=== PATIENT | female | born 1940 | race Hispanic/Latino ===

== ENCOUNTER 2018-07-20 10:13 | Observation (INO) | payer OTHER, MEDICARE ==
[~2018-07-20] VITALS: Ht 157.5 cm; Wt 77.1 kg
[~2018-07-20 10:13] MED LIST: AEC81 PO; ALBU0.63 IH; ATOR10 PO; LEVO150T11 PO; METF-446 PO; NAPR-1023 PO; OLAN1CAP PO
[2018-07-20] MEDS ORDERED: SODIUM CHLORIDE 0.9% 500ML 500 ML IV ONE (10:54)
[2018-07-20] MEDS ORDERED: KETOROLAC TROMETHAMINE 30MG/ML ONE (10:54)
[2018-07-20 11:37] LABS: BASOPHILS % (AUTO) 0.2 % (0.0-5.0); EOSINOPHILS % (AUTO) 0.1 % (0.0-8.0); HEMATOCRIT 31.6 % (36-48); LYMPHOCYTES % (AUTO) 9.5 % (21.0-51.0); MEAN CORPUSCULAR HEMOGLOBIN 26.8 pg (27.0-33.0); MEAN CORPUSCULAR HGB CONC 32.6 g/dL (32.0-36.0); MEAN CORPUSCULAR VOLUME 82.3 fL (79-99); NEUTROPHILS % (AUTO) 83.2 % (40.0-77.0); PLATELET COUNT (AUTO) 146 K/uL (130-400); RED BLOOD CELL COUNT(AUTO) 3.83 MIL/uL (4.00-5.50); RED CELL DISTRIBUTION WIDTH 16.5 % (11.0-15.5); WHITE BLOOD COUNT (AUTO) 8.7 K/uL (4.8-10.8)
[2018-07-20 11:50] LABS: CREATININE 2.1 mg/dL (0.5-1.5); POTASSIUM 4.4 mmol/L (3.5-5.1)
[2018-07-20 11:54] LABS: CRP QUANTITATIVE 119.9 mg/L (0.00-9.0)
[2018-07-20 12:53] LABS: ERYTHROCYTE SEDIMENTATION RATE 40 MM/HR (0-30)
[2018-07-20] MEDS ORDERED: ACETAMINOPHEN 325 MG TAB PO PRN (15:15)
[2018-07-20] MEDS ORDERED: MORPHINE SULFATE 2 MG/ML 1ML SYG IVP PRN (15:15)
[2018-07-20] MEDS ORDERED: ONDANSETRON HCL 4 MG/2 ML VIAL IVP PRN (15:15)
[2018-07-20] MEDS ORDERED: NAPROXEN 500 MG TABLET PO PRN (15:15)
[2018-07-20] MEDS ORDERED: HYDROCODONE/ACETAMINOPHEN 5/325 MG TAB PO PRN (15:15)
[2018-07-20] MEDS ORDERED: ENOXAPARIN SODIUM 40 MG/0.4 ML SYRINGE SQ ONE (15:17)
[2018-07-20] MEDS: INSULIN R PO SS1/2 SQ SCH ×2 (16:30→21:00)
[2018-07-20 17:40] VITALS: BP 124/56
[2018-07-20] MEDS ORDERED: SITA50TA PO (18:26)
[2018-07-20] MEDS ORDERED: CALC-1009 PO (18:26)
[2018-07-20] MEDS ORDERED: TRAM50TA4 PO (18:26)
[2018-07-20] MEDS ORDERED: LISI1TAB11 PO (18:26)
[2018-07-20] MEDS ORDERED: DOXY-252 PO (18:26)
--- NOTE | 2018-07-20 19:30 | NUR ---
DR. AVALOS HERE TO SEE PATIENT . DR AVALOS ASPIRATED APPOX 45 CC YELLOWISH FLUID FROM RIGHT KNEE. PATIENT TOLERATED WELL. FLUID SENT TO LAB FOR ANALYSIS.
[2018-07-20 20:00] VITALS: BP 141/72
[2018-07-20] MEDS: SODIUM CHLORIDE 0.9% 1000ML 1,000 ML IV SCH (21:08)
[2018-07-20] MEDS: ATORVASTATIN CALCIUM 10 MG TABLET PO SCH (22:00)
[2018-07-20 22:09] LABS: APPEARANCE BODY FLUID CLOUDY (CLEAR); COLOR,BODY FLUID YELLOW (LT YELLOW); SPECIMENTYPE,BODY FLUID SYNOVIAL; TOTAL VOLUME,BODY FLUID 50 mL
[2018-07-20 22:10] LABS: BODY FLUID RBC 1389 /cu. mm.; BODY FLUID WBC 21167 /cu. mm.
[2018-07-20 22:16] LABS: BF LYMPHOCYTE 1 %
[2018-07-20] MEDS: ALBUTEROL SULFATE 0.083% 2.5 MG/3 ML INH IH SCH (23:07)
[2018-07-21] VITALS: BP 123/58
[2018-07-21 04:29] VITALS: BP 99/55
[2018-07-21 05:14] LABS: MEAN CORPUSCULAR HEMOGLOBIN 27.2 pg (27.0-33.0); MEAN CORPUSCULAR HGB CONC 32.9 g/dL (32.0-36.0); MEAN CORPUSCULAR VOLUME 82.6 fL (79-99); PLATELET COUNT (AUTO) 146 K/uL (130-400); RED BLOOD CELL COUNT(AUTO) 3.39 MIL/uL (4.00-5.50); RED CELL DISTRIBUTION WIDTH 16.1 % (11.0-15.5); WHITE BLOOD COUNT (AUTO) 7.2 K/uL (4.8-10.8)
[2018-07-21 05:32] LABS: CREATININE 2.4 mg/dL (0.5-1.5); POTASSIUM 4.3 mmol/L (3.5-5.1); URIC ACID 10.5 mg/dL (2.6-7.2)
[2018-07-21] MEDS: SODIUM CHLORIDE 0.9% 1000ML 1,000 ML IV SCH ×2 (06:27→17:55)
[2018-07-21] MEDS ORDERED: LEVOTHYROXINE 150 MCG TABLET PO SCH (06:30)
[2018-07-21] MEDS: INSULIN R PO SS1/2 SQ SCH ×4 (06:33→20:25)
[2018-07-21] MEDS: ALBUTEROL SULFATE 0.083% 2.5 MG/3 ML INH IH SCH ×3 (07:21→21:34)
[2018-07-21 08:00] VITALS: BP 120/60
[2018-07-21] MEDS ORDERED: METFORMIN HCL 500 MG TABLET PO SCH (08:00)
[2018-07-21] MEDS: FLUOXETINE HCL PO SCH (09:50)
[2018-07-21] MEDS: OLANZAPINE PO SCH (09:50)
[2018-07-21] MEDS: ENOXAPARIN SODIUM 40 MG/0.4 ML SYRINGE SQ SCH (09:55)
[2018-07-21 12:00] VITALS: BP 89/47
[2018-07-21 13:39] LABS: CRYSTALS, SYNOVIAL FLUID SEE SEPARATE REPORT
[2018-07-21 16:00] VITALS: BP 105/55
[2018-07-21 19:53] VITALS: BP 115/70
[2018-07-21] MEDS: ATORVASTATIN CALCIUM 10 MG TABLET PO SCH (20:24)
[2018-07-21] MEDS: COLCHICINE 0.6 MG TABLET PO SCH (20:24)
[2018-07-22 00:11] VITALS: BP 149/64
[2018-07-22 04:00] VITALS: BP 133/76
[2018-07-22] MEDS: INSULIN R PO SS1/2 SQ SCH ×3 (06:04→16:04)
[2018-07-22] MEDS: ALBUTEROL SULFATE 0.083% 2.5 MG/3 ML INH IH SCH ×2 (07:01→13:49)
[2018-07-22] MEDS: SODIUM CHLORIDE 0.9% 1000ML 1,000 ML IV SCH (07:15)
[2018-07-22 07:30] VITALS: BP 128/77
[2018-07-22] MEDS ORDERED: ASPIRIN 81 MG EC TAB PO SCH (09:00)
[2018-07-22] MEDS: COLCHICINE 0.6 MG TABLET PO SCH (09:57)
[2018-07-22] MEDS: ENOXAPARIN SODIUM 40 MG/0.4 ML SYRINGE SQ SCH (09:58)
[2018-07-22] MEDS: FLUOXETINE HCL PO SCH (09:59)
[2018-07-22] MEDS: OLANZAPINE PO SCH (09:59)
[2018-07-22 11:30] VITALS: BP 132/66
[2018-07-22 15:30] VITALS: BP 137/60
[2018-07-22] MEDS ORDERED: BENZ-39 PO (15:35)
[2018-07-22] MEDS ORDERED: DOXY100C2 PO (15:35)
--- NOTE | 2018-07-22 15:40 | NUR ---
DCP NO IA DONE. PT IN OBS STATUS . NO CONCERNS VOICED BY FAMILY OR PRIAMRY DESEAN Addendum: 07/24/18 at 1541 by ARTIE RENE RN CM Amended: Links added.
[2018-07-22] MEDS ORDERED: PRED20TA3 PO (16:43)
== END 2018-07-22 18:40 | disposition home or self-care (01) ==
LOC: EDH 10:13 → EDHIP 13:45 → 3BH 17:44
PROVIDERS: ADMIT Internal Medicine Critical Care Medicine; ATTEND Internal Medicine Critical Care Medicine
DX: M10.9 Gout, unspecified (principal); M00.9 Pyogenic arthritis, unspecified; M25.461 Effusion, right knee; M17.11 Unilateral primary osteoarthritis, right knee; E03.9 Hypothyroidism, unspecified; E11.9 Type 2 diabetes mellitus without complications; E78.5 Hyperlipidemia, unspecified; H91.90 Unspecified hearing loss, unspecified ear; I10 Essential (primary) hypertension; N17.9 Acute kidney failure, unspecified; F41.8 Other specified anxiety disorders; Z79.82 Long term (current) use of aspirin
CPT/HCPCS: 36415 ×3; 73562; 80048 ×2; 82948 ×8; 84550; 85025; 85027; 85651; 86140; 86431; 87070; 87071; 87076; 87205; 89051; 89060; 94640 ×6; 94664; 96372 ×2; 99284; G0378 ×53; J1650 ×3; J1885; J7030; J7040

== ENCOUNTER 2018-08-01 17:50 | Observation (INO) | payer OTHER, MEDICARE ==
[2018-08-01] VITALS (20 sets, daily range): BP systolic 140–220; BP diastolic 84–107
[~2018-08-01 17:50] MED LIST changes: +CALC-1009 PO; +DOXY-252 PO; +LISI1TAB11 PO; +PRED20TA3 PO; +SITA50TA PO; +TRAM50TA4 PO
[2018-08-01 18:56] LABS: BASOPHILS % (AUTO) 0.3 % (0.0-5.0); EOSINOPHILS % (AUTO) 1.5 % (0.0-8.0); HEMATOCRIT 33.9 % (36-48); LYMPHOCYTES % (AUTO) 14.1 % (21.0-51.0); MEAN CORPUSCULAR HEMOGLOBIN 26.7 pg (27.0-33.0); MEAN CORPUSCULAR HGB CONC 32.7 g/dL (32.0-36.0); MEAN CORPUSCULAR VOLUME 81.8 fL (79-99); MONOCYTES % (AUTO) 4.5 % (3.0-13.0); NEUTROPHILS % (AUTO) 79.6 % (40.0-77.0); PLATELET COUNT (AUTO) 185 K/uL (130-400); RED BLOOD CELL COUNT(AUTO) 4.15 MIL/uL (4.00-5.50); RED CELL DISTRIBUTION WIDTH 16.4 % (11.0-15.5); WHITE BLOOD COUNT (AUTO) 11.5 K/uL (4.8-10.8)
[2018-08-01 19:06] LABS: POTASSIUM 4.4 mmol/L (3.5-5.1)
[2018-08-01] MEDS ORDERED: CEFAZOLIN SODIUM 1 GM VIAL ONE ×2 (19:52→20:53)
[2018-08-01] MEDS ORDERED: SODIUM CHLORIDE 0.9% 100 ML IV ONE (19:53)
[2018-08-01] MEDS ORDERED: LIDOCAINE PF 2% 5ML ABBOJECT ONE (19:58)
[2018-08-01] MEDS ORDERED: ONDANSETRON HCL 4 MG/2 ML VIAL ONE (19:58)
[2018-08-01] MEDS ORDERED: FENTANYL CITRATE PF 50 MCG/1 ML 2ML VIAL ONE (19:59)
[2018-08-01] MEDS ORDERED: DEXAMETHASONE SOD PHOSPHATE 10MG/ML 1ML VIAL ONE (19:59)
[2018-08-01] MEDS ORDERED: ROCURONIUM 10MG/1ML SYR 10 MG/ML ML ONE (19:59)
[2018-08-01] MEDS ORDERED: PROPOFOL 10 MG/ML 20ML VIAL IV ONE (19:59)
[2018-08-01] MEDS ORDERED: MIDAZOLAM HCL 1 MG/ML 2ML VIAL ONE (19:59)
[2018-08-01] MEDS ORDERED: SODIUM CHLORIDE 0.9% 1000ML 1,000 ML IV SCH (20:00)
[2018-08-01] MEDS ORDERED: CEFAZOLIN SODIUM 1 GM VIAL IVP SCH (20:00)
[2018-08-01 20:18] LABS: APPEARANCE,URINE CLEAR (CLEAR); BILIRUBIN,URINE NEGATIVE (NEGATIVE); COLOR,URINE YELLOW (YELLOW); GLUCOSE, URINE (UA) NEGATIVE (NEGATIVE); KETONES,URINE NEGATIVE (NEGATIVE); LEUKOCYTE ESTERASE ,URINE TRACE (NEGATIVE); NITRATE,URINE POSITIVE (NEGATIVE); OCCULT BLOOD,URINE NEGATIVE (NEGATIVE); PH,URINE 5.5 (5.0-8.0); PROTEIN,URINE NEGATIVE (NEGATIVE); UROBILINOGEN,URINE 0.2 mg/dL (0.2-1.0)
[2018-08-01 20:28] LABS: BACTERIA,URINE Few /HPF (None Seen)
[2018-08-01 20:30] LABS: MUCUS,URINE Rare LPF (None Seen); RBC,URINE 0-1 /HPF (0-1)
[2018-08-01] MEDS ORDERED: GLYCOPYRROLATE 1 MG/5 ML SYRINGE ONE (21:38)
[2018-08-01] MEDS ORDERED: KETOROLAC TROMETHAMINE 15MG/ML IV PRN (21:45)
[2018-08-01] MEDS ORDERED: POTASSIUM CHLORIDE 10% ELIXIR 20 MEQ/15 ML UDCUP PO PRN (21:45)
[2018-08-01] MEDS ORDERED: POTASSIUM CHLORIDE 20MEQ/100ML 100 ML IV PRN (21:45)
[2018-08-01] MEDS ORDERED: DiphenhydrAMINE HCL 50 MG/ML VIAL IVP PRN (21:45)
[2018-08-01] MEDS: SODIUM CHLORIDE 0.9% 1000ML 1,000 ML IV SCH (21:45)
[2018-08-01] MEDS ORDERED: HYDROCODONE/ACETAMINOPHEN 5/325 MG TAB PO PRN ×2 (21:45)
[2018-08-01] MEDS ORDERED: POTASSIUM CHLORIDE 20 MEQ ERTAB PO PRN (21:45)
[2018-08-01] MEDS ORDERED: LIDOCAINE HCL-MPF 1% 2ML VIAL IVP PRN (21:45)
[2018-08-01] MEDS ORDERED: ESMOLOL HCL 10 MG/ML 10 ML VIAL ONE (22:18)
[2018-08-01] MEDS ORDERED: SODIUM BICARB 8.4% 50ML SYRINGE ONE (22:18)
[2018-08-01] MEDS ORDERED: NALOXONE HCL 0.4 MG/1 ML ML ONE (22:19)
[2018-08-01] MEDS ORDERED: HYDRALAZINE HCL 20 MG/ML VIAL ONE (22:26)
[2018-08-01] MEDS ORDERED: LABETALOL HCL 5 MG/ML 20ML VIAL IV ONE (22:35)
[2018-08-01 23:29] LABS: ABG BASE EXCESS -2.1 mmol/L (-2.0-3.0); ABG HCO3 24.3 mmol/L (21.0-28.0); ABG OXYGEN SATURATION 96.3 % (95.0-99.0); ABG PCO2 48 mmHg (32-45)
--- NOTE | 2018-08-02 00:30 | NUR ---
Received pt. from recovery,pt. S/P right radiu-ulnar ORIF and wound exploration.Pt is on Bipap and NS@100ml/hr.Son here to visit.Pt. is lethargic but easily arousable, and follows simple commands.
[2018-08-02] MEDS ORDERED: ALLO100T PO (02:51)
[2018-08-02 03:45] VITALS: BP 140/90
[2018-08-02] MEDS: SODIUM CHLORIDE 0.9% 1000ML 1,000 ML IV SCH (04:47)
[2018-08-02 07:27] VITALS: BP 110/69
[2018-08-02] MEDS ORDERED: INSULIN HUMULIN R 100 UNIT/ML 3ML SQ SCH (07:30)
--- NOTE | 2018-08-02 07:45 | NUR ---
ASSESSMENT ENCOUNTERED PT A&OX3, ON BIPAP, O2 SATS 100%, REMOVED BIPAP AND PLACED ON NRB. PT A&OX3, CALM COOPERATIVE AND DOES NOT APPEAR TO BE IN ANY DISTRESS. PT DOES HAVE RT ARM SPLINT AND WRAPPED IN ZHENG BANDAGE. [employer] STRENGTH PRESENT BUT WEAKER ON RT THAN LEFT. RT ARM DRESSING DRY AND INTACT. PT RESTING COMFORTABLY, CALL LIGHT WITHIN REACH, FAMILY AT BEDSIDE.
--- NOTE | 2018-08-02 08:00 | NUR ---
NRB TO NC TOLERATING WELL, O2SATS 98%.
[2018-08-02] MEDS ORDERED: NITROFURANTOIN MONOHYD/M-CRYST 100 MG CAPSULE PO SCH (09:00)
--- NOTE | 2018-08-02 09:54 | NUR ---
DC PLAN VISITED WITH PATIENT AND DAUGHTER IDALMIS. PATIENT WILL BE STAYING WITH DAUGHTER. HOME HEALTH CHOICES GIVEN. INFO SENT TO [facility]. JANICE SIGNED. Addendum: 08/02/18 at 0956 by HALLE DOWELL RN CM Amended: Links added.
--- NOTE | 2018-08-02 10:15 | NUR ---
NC TO ROOM AIR O2 SATS 95%, TOLERATING WELL, CALL LIGHT WITHIN REACH, FAMILY AT BEDSIDE.
[2018-08-02 11:30] VITALS: BP 113/70
[2018-08-02] MEDS ORDERED: PHARMACY COMMUNICATION MISC SCH (11:45)
--- NOTE | 2018-08-02 13:00 | NUR ---
DISCHARGE INSTRUCTIONS GIVEN, PIV REMOVED AND INTACT, DISCHARGED HOME TO FAMILY VEHICLE VIA WHEELCHAIR.
[2018-08-02] MEDS ORDERED: CEPH500B PO (13:30)
[2018-08-02] MEDS ORDERED: TRAM50TA4 PO (13:30)
--- NOTE | 2018-08-02 14:06 | NUR ---
DC PLAN SPOKE TO DR. AVALOS SAID TO GO AHEAD AND TRY TO GET WHEEL CHAIR FOR PATIENT. SAID DID NOT HAVE TO WAIT FOR DELIVERY OKAY IF DELIVERED TO HOME. AWARE THAT IT MIGHT NOT BE COVERED BY INSURANCE WITH CURRENT DIAGNOSIS. SPOKE TO PATIENT AND FAMILY EXPLAINED SAID THING. INFO SENT TO [facility] PENDING TO SEE IF COVERED. Addendum: 08/02/18 at 1408 by HALLE DOWELL RN CM Amended: Links added.
--- NOTE | 2018-08-03 16:40 | NUR ---
DC PLAN CALLED [facility] WHEEL CHAIR APPROVED AND OUT FOR DELIVERY. Addendum: 08/03/18 at 1641 by HALLE DOWELL RN CM Amended: Links added.
== END 2018-08-02 15:18 | disposition home or self-care (01) ==
LOC: EDH 17:50 → EDHIP 19:30 → 2DH 08-02 00:05
PROVIDERS: ADMIT Orthopaedic Surgery; ATTEND Orthopaedic Surgery
DX: S52.501A Unspecified fracture of the lower end of right radius, initial encounter for closed fracture (principal); S52.601A Unspecified fracture of lower end of right ulna, initial encounter for closed fracture; E78.5 Hyperlipidemia, unspecified; E11.9 Type 2 diabetes mellitus without complications; I10 Essential (primary) hypertension; W01.0XXA Fall on same level from slipping, tripping and stumbling without subsequent striking against object, initial encounter; Y93.01 Activity, walking, marching and hiking; Y92.89 Other specified places as the place of occurrence of the external cause; Y99.8 Other external cause status; Z90.49 Acquired absence of other specified parts of digestive tract; Z98.51 Tubal ligation status; Z90.10 Acquired absence of unspecified breast and nipple
CPT/HCPCS: 20690; 25605; 36415; 36600; 70450; 72170; 73110; 76000; 80048; 81001; 82803; 82948 ×3; 84484; 85025; 93005; 94660 ×2; 96372; 96374; A4565 ×2; A4600; A4930; A6223; A6446; C1713; C1776; G0378 ×20; J0360; J0690 ×2; J1100; J1815; J1885; J2001; J2250; J2310; J2405; J2704; J3010; J3490 ×4; J7030 ×2

== ENCOUNTER 2020-10-30 13:00 | Inpatient (IN) | payer OTHER, MEDICARE ==
[~2020-10-30] VITALS: Ht 157.5 cm; Wt 67.7 kg
[~2020-10-30 13:00] MED LIST changes: -AEC81 PO; -ALBU0.63 IH; +ALLO100T PO; -ATOR10 PO; -CALC-1009 PO; -DOXY-252 PO; -LISI1TAB11 PO; +LISI1TAB51 PO; -METF-446 PO; -NAPR-1023 PO; -OLAN1CAP PO; -PRED20TA3 PO; -TRAM50TA4 PO
[2020-11-05 11:32] LABS: BASOPHILS % (AUTO) 0.5 % (0.0-5.0); EOSINOPHILS % (AUTO) 3.7 % (0.0-8.0); HEMATOCRIT 31.6 % (36-48); LYMPHOCYTES % (AUTO) 14.9 % (21.0-51.0); MEAN CORPUSCULAR HEMOGLOBIN 27.6 pg (27.0-33.0); MEAN CORPUSCULAR HGB CONC 28.8 g/dL (32.0-36.0); MEAN CORPUSCULAR VOLUME 95.8 fL (79-99); MONOCYTES % (AUTO) 4.6 % (3.0-13.0); NEUTROPHILS % (AUTO) 75.4 % (40.0-77.0); PLATELET COUNT (AUTO) 93 K/uL (130-400); RED CELL DISTRIBUTION WIDTH 22.4 % (11.0-15.5); WHITE BLOOD COUNT (AUTO) 8.5 K/uL (4.8-10.8)
[2020-11-05 11:40] LABS: CREATININE 2.6 mg/dL (0.5-1.5); POTASSIUM 4.2 mmol/L (3.5-5.1)
[2020-11-05 11:59] LABS: PROTHROMBIN TIME 10.9 SEC (9.6-11.6)
[2020-11-05] MEDS ORDERED: FERR-82 PO (15:09)
[2020-11-05] MEDS ORDERED: ATOR10TA69 PO (15:09)
[2020-11-05] MEDS ORDERED: TORS10TA18 PO (15:09)
[2020-11-05 15:20] VITALS: BP 105/57
[2020-11-06] VITALS (36 sets, daily range): BP systolic 93–152; BP diastolic 52–86
[2020-11-06] MEDS ORDERED: CEFOXITIN SODIUM 2 GM VIAL IVP ONE (08:00)
[2020-11-06] MEDS ORDERED: AMP/SULBAC 3GM+NS 100ML 100 ML IV ONE (08:00)
[2020-11-06] MEDS ORDERED: 0.9%NACL 1000ML 1,000 ML IV ONE (09:49)
[2020-11-06] MEDS ORDERED: DEXAMETHASONE SOD PHOSPHATE 10MG/ML 1ML VIAL ONE (10:38)
[2020-11-06] MEDS ORDERED: LIDOCAINE PF 100MG/5ML (2%) SYRINGE 5ML ONE (10:38)
[2020-11-06] MEDS ORDERED: ONDANSETRON 4MG INJ ONE (10:39)
[2020-11-06] MEDS ORDERED: GLYCOPYRROLATE 1 MG/5 ML SYRINGE ONE (10:39)
[2020-11-06] MEDS ORDERED: MIDAZOLAM HCL 1 MG/ML 2ML VIAL ONE ×2 (10:39→11:39)
[2020-11-06] MEDS ORDERED: NEOSTIGMINE 5MG/5ML SYR IV ONE (10:39)
[2020-11-06] MEDS ORDERED: ROCURONIUM 10MG/1ML SYR 10 MG/ML ML ONE (10:39)
[2020-11-06] MEDS ORDERED: PROPOFOL 10 MG/ML 20ML VIAL IV ONE (10:39)
[2020-11-06] MEDS ORDERED: FENTANYL CITRATE PF 50 MCG/1 ML 2ML VIAL ONE ×3 (10:40→13:38)
[2020-11-06] MEDS ORDERED: ALBUMIN (HUMAN) 25% 150 ML IV ONE (10:47)
[2020-11-06] MEDS ORDERED: EPHEDRINE SULFATE 50 MG/ML AMPULE ONE (12:20)
[2020-11-06] MEDS ORDERED: VASOPRESSIN 20 UNITS/ML 1ML VIAL ONE (12:51)
[2020-11-06] MEDS ORDERED: PHENYLEPHRINE HCL 10 MG/ML 1ML VIAL IV ONE (13:02)
[2020-11-06] MEDS ORDERED: FUROSEMIDE 40MG VIAL ONE (13:04)
[2020-11-06] MEDS ORDERED: ESMOLOL HCL 10 MG/ML 10 ML VIAL ONE (13:06)
[2020-11-06] MEDS ORDERED: FUROSEMIDE 20MG VIAL ONE (13:42)
[2020-11-06] MEDS ORDERED: IPRATROPIUM/ALBUTEROL SULFATE 3 ML SOLUTION IH ONE (13:43)
[2020-11-06] MEDS ORDERED: ONDANSETRON 4MG INJ IVP PRN (15:00)
[2020-11-06] MEDS ORDERED: MORPHINE 2 MG SYG IV PRN (15:00)
[2020-11-06] MEDS ORDERED: INSULIN HUMULIN R 100 UNIT/ML 3ML SQ PRN (15:00)
[2020-11-06] MEDS ORDERED: ACETAMINOPHEN 325 MG TAB PO PRN (15:00)
[2020-11-06] MEDS ORDERED: DEXTROSE 50%-WATER 50 ML DISP.SYRIN IV PRN (15:15)
[2020-11-06] MEDS ORDERED: MAGNESIUM 2GM PREMIX 50ML 50 ML IV PRN (15:15)
[2020-11-06] MEDS ORDERED: POTASSIUM CHLORIDE 20MEQ/100ML 100 ML IV PRN (15:15)
[2020-11-06] MEDS ORDERED: GLUCAGON 1MG KIT 1 MG ML IM PRN (15:15)
[2020-11-06] MEDS ORDERED: LIDOCAINE HCL-MPF 1% 2ML VIAL IV PRN ×2 (15:15)
[2020-11-06] MEDS ORDERED: KCL 20 MEQ ERTAB PO PRN (15:15)
[2020-11-06] MEDS ORDERED: ZOSYN 3.375GM+NS 50ML 50 ML IV ONE (16:39)
[2020-11-06] MEDS: 0.9%NACL 1000ML 1,000 ML IV SCH (16:41)
[2020-11-06] MEDS: INSULIN HUMULIN R 100 UNIT/ML 3ML SQ SCH (16:47)
[2020-11-06] MEDS: PIP/TAZ ZOSYN 3.375G 3.375 GM VIAL IVPB SCH (16:47)
[2020-11-06 17:10] LABS: HEMATOCRIT 32.4 % (36-48); MEAN CORPUSCULAR HEMOGLOBIN 28.5 pg (27.0-33.0); MEAN CORPUSCULAR HGB CONC 30.6 g/dL (32.0-36.0); MEAN CORPUSCULAR VOLUME 93.4 fL (79-99); RED BLOOD CELL COUNT(AUTO) 3.47 MIL/uL (4.00-5.50); RED CELL DISTRIBUTION WIDTH 20.3 % (11.0-15.5); WHITE BLOOD COUNT (AUTO) 19.1 K/uL (4.8-10.8)
[2020-11-06 17:18] LABS: CREATININE 2.6 mg/dL (0.5-1.5); POTASSIUM 4.3 mmol/L (3.5-5.1)
[2020-11-06 17:23] LABS: ALBUMIN 3.7 g/dL (3.5-5.0); BILIRUBIN,TOTAL 0.8 mg/dL (0.2-1.0); TOTAL PROTEIN, SERUM 6.9 g/dL (6.0-8.3)
[2020-11-06 17:24] LABS: ABG OXYGEN SATURATION 92.1 % (95.0-99.0); ABG PCO2 41 mmHg (32-45)
[2020-11-06] MEDS ORDERED: SODIUM BICARB 50MEQ 50ML VIAL 100 ML ONE (17:48)
[2020-11-06] MEDS ORDERED: PHENYLEPHRINE HCL 100 MG in 0.9% NACL 250ML 250 ML IV SCH (18:00)
[2020-11-06] MEDS ORDERED: 0.9% NACL 500ML IV.SOLN 500 ML IV SCH (18:00)
[2020-11-06] MEDS ORDERED: SODIUM BICARB 50MEQ 50ML VIAL IV SCH (18:00)
[2020-11-06] MEDS ORDERED: VASOPRESSIN 40 UNITS in 0.9%NACL 50ML 40 ML IV PRN (18:15)
[2020-11-06] MEDS: IPRATROPIUM 0.5 MG/2.5 ML INH IH SCH ×2 (18:33→23:50)
[2020-11-06] MEDS: LACTATED RINGERS 1000ML 1,000 ML IV SCH (20:58)
[2020-11-06 21:00] LABS: ABG BASE EXCESS -2.6 mmol/L (-2.0-3.0); ABG HCO3 22.3 mmol/L (21.0-28.0); ABG PCO2 39 mmHg (32-45)
[2020-11-07] VITALS (92 sets, daily range): BP systolic 64–174; BP diastolic 37–93
[2020-11-07] MEDS: PROPOFOL 1000 MG/100 ML 100 ML IV PRN ×4 (00:02→19:17)
[2020-11-07] MEDS: FENTANYL 2500MCG+NS 250ML 250 ML IV PRN ×2 (00:03→19:21)
[2020-11-07] MEDS: INSULIN HUMULIN R 100 UNIT/ML 3ML SQ SCH ×5 (00:04→23:35)
[2020-11-07] MEDS ORDERED: ZOSYN 3.375GM+NS 50ML 50 ML IV ONE ×2 (02:58→15:36)
[2020-11-07] MEDS: 0.9%NACL 1000ML 1,000 ML IV SCH ×2 (04:20→17:40)
[2020-11-07] MEDS: LACTATED RINGERS 1000ML 1,000 ML IV SCH ×3 (04:28→23:28)
[2020-11-07] MEDS: PIP/TAZ ZOSYN 3.375G 3.375 GM VIAL IVPB SCH ×2 (04:28→15:39)
[2020-11-07 05:25] LABS: HEMATOCRIT 26.2 % (36-48); MEAN CORPUSCULAR HEMOGLOBIN 28.1 pg (27.0-33.0); MEAN CORPUSCULAR HGB CONC 31.7 g/dL (32.0-36.0); MEAN CORPUSCULAR VOLUME 88.8 fL (79-99); RED BLOOD CELL COUNT(AUTO) 2.95 MIL/uL (4.00-5.50); RED CELL DISTRIBUTION WIDTH 19.9 % (11.0-15.5); WHITE BLOOD COUNT (AUTO) 14.1 K/uL (4.8-10.8)
[2020-11-07 05:54] LABS: ALBUMIN 2.9 g/dL (3.5-5.0); BILIRUBIN,TOTAL 0.6 mg/dL (0.2-1.0); CREATININE 2.6 mg/dL (0.5-1.5); MAGNESIUM 2.6 mg/dL (1.80-2.40); POTASSIUM 4.6 mmol/L (3.5-5.1); TOTAL PROTEIN, SERUM 5.9 g/dL (6.0-8.3)
[2020-11-07] MEDS: IPRATROPIUM 0.5 MG/2.5 ML INH IH SCH (07:01)
[2020-11-07] MEDS: ACETYLCYSTEINE 20% 200MG/ML 4ML VIAL IH SCH ×3 (08:00→19:40)
[2020-11-07] MEDS: IPRATROPIUM/ALBUTEROL SULFATE 3 ML SOLUTION IH SCH ×3 (08:00→19:39)
[2020-11-07] MEDS: PANTOPRAZOLE 40 MG/VIAL IVP SCH (08:10)
[2020-11-07 08:42] LABS: ABG BASE EXCESS 1.7 mmol/L (-2.0-3.0); ABG HCO3 25.7 mmol/L (21.0-28.0); ABG OXYGEN SATURATION 99.3 % (95.0-99.0); ABG PCO2 38 mmHg (32-45)
[2020-11-07] MEDS ORDERED: LIDOCAINE HCL 1% 20 ML VIAL ONE (13:51)
[2020-11-07 18:36] LABS: SPECIMENTYPE,BODY FLUID LAVAGE
[2020-11-07 18:37] LABS: APPEARANCE BODY FLUID SLIGHTLY CLOUDY (CLEAR); COLOR,BODY FLUID LT YELLOW (LT YELLOW); TOTAL VOLUME,BODY FLUID 22 mL
[2020-11-07 18:38] LABS: BODY FLUID WBC 1515 /cu. mm.
[2020-11-07 18:39] LABS: BODY FLUID RBC 1200 /cu. mm.
[2020-11-07 18:43] LABS: BF LYMPHOCYTE 1 %
[2020-11-08] VITALS (105 sets, daily range): BP systolic 95–175; BP diastolic 46–95
[2020-11-08] MEDS: ACETYLCYSTEINE 20% 200MG/ML 4ML VIAL IH SCH ×4 (00:41→18:20)
[2020-11-08] MEDS: IPRATROPIUM/ALBUTEROL SULFATE 3 ML SOLUTION IH SCH ×4 (00:41→18:19)
[2020-11-08 03:50] LABS: HEMATOCRIT 24.4 % (36-48); MEAN CORPUSCULAR HEMOGLOBIN 28.4 pg (27.0-33.0); MEAN CORPUSCULAR HGB CONC 31.1 g/dL (32.0-36.0); RED BLOOD CELL COUNT(AUTO) 2.68 MIL/uL (4.00-5.50); RED CELL DISTRIBUTION WIDTH 20.8 % (11.0-15.5); WHITE BLOOD COUNT (AUTO) 18.9 K/uL (4.8-10.8)
[2020-11-08 04:14] LABS: ABG BASE EXCESS 0.7 mmol/L (-2.0-3.0); ABG HCO3 23.7 mmol/L (21.0-28.0); ABG OXYGEN SATURATION 99.2 % (95.0-99.0); ABG PCO2 34 mmHg (32-45)
[2020-11-08 04:17] LABS: CREATININE 2.5 mg/dL (0.5-1.5); MAGNESIUM 2.6 mg/dL (1.80-2.40); POTASSIUM 4.3 mmol/L (3.5-5.1)
[2020-11-08] MEDS ORDERED: ZOSYN 3.375GM+NS 50ML 50 ML IV ONE ×2 (04:41→17:19)
[2020-11-08] MEDS: PIP/TAZ ZOSYN 3.375G 3.375 GM VIAL IVPB SCH ×2 (04:43→17:21)
[2020-11-08] MEDS: INSULIN HUMULIN R 100 UNIT/ML 3ML SQ SCH ×3 (05:49→18:00)
[2020-11-08] MEDS: 0.9%NACL 1000ML 1,000 ML IV SCH ×2 (05:50→19:54)
[2020-11-08] MEDS: PANTOPRAZOLE 40 MG/VIAL IVP SCH (10:02)
[2020-11-08] MEDS: FUROSEMIDE 40MG VIAL IV SCH (10:02)
[2020-11-08] MEDS: LACTATED RINGERS 1000ML 1,000 ML IV SCH ×2 (17:23→19:50)
[2020-11-08] MEDS: PROPOFOL 1000 MG/100 ML 100 ML IV PRN (21:53)
[2020-11-08] MEDS: FENTANYL 2500MCG+NS 250ML 250 ML IV PRN (21:54)
[2020-11-09] VITALS (46 sets, daily range): BP systolic 113–190; BP diastolic 56–109
[2020-11-09] MEDS: IPRATROPIUM/ALBUTEROL SULFATE 3 ML SOLUTION IH SCH ×5 (00:54→23:21)
[2020-11-09] MEDS: ACETYLCYSTEINE 20% 200MG/ML 4ML VIAL IH SCH ×5 (00:54→23:21)
[2020-11-09 04:05] LABS: HEMATOCRIT 24.4 % (36-48); MEAN CORPUSCULAR HEMOGLOBIN 27.9 pg (27.0-33.0); MEAN CORPUSCULAR HGB CONC 30.7 g/dL (32.0-36.0); MEAN CORPUSCULAR VOLUME 90.7 fL (79-99); RED BLOOD CELL COUNT(AUTO) 2.69 MIL/uL (4.00-5.50); RED CELL DISTRIBUTION WIDTH 19.9 % (11.0-15.5); WHITE BLOOD COUNT (AUTO) 10.4 K/uL (4.8-10.8)
[2020-11-09 04:18] LABS: CREATININE 2.4 mg/dL (0.5-1.5); POTASSIUM 3.7 mmol/L (3.5-5.1)
[2020-11-09] MEDS ORDERED: ZOSYN 3.375GM+NS 50ML 50 ML IV ONE ×2 (04:46→15:59)
[2020-11-09] MEDS: PIP/TAZ ZOSYN 3.375G 3.375 GM VIAL IVPB SCH ×2 (04:56→16:05)
[2020-11-09] MEDS: INSULIN HUMULIN R 100 UNIT/ML 3ML SQ SCH ×4 (06:00→17:56)
[2020-11-09] MEDS: LACTATED RINGERS 1000ML 1,000 ML IV SCH (06:24)
[2020-11-09] MEDS: FUROSEMIDE 40MG VIAL IV SCH (07:30)
[2020-11-09] MEDS: PANTOPRAZOLE 40 MG/VIAL IVP SCH (08:33)
[2020-11-09 11:10] LABS: ABG HCO3 24.5 mmol/L (21.0-28.0); ABG OXYGEN SATURATION 98.6 % (95.0-99.0); ABG PCO2 36 mmHg (32-45)
[2020-11-09] MEDS ORDERED: PHARMACY COMMUNICATION MISC SCH (11:30)
[2020-11-09] MEDS ORDERED: VANCOMYCIN PROTOCOL PER PHARMACY IV SCH (11:45)
[2020-11-09] MEDS: 0.9%NACL 1000ML 1,000 ML IV SCH ×2 (13:00→19:38)
[2020-11-09] MEDS: DEXTROSE 5%-WATER 1,000 ML IV SCH ×2 (13:08→19:00)
[2020-11-09] MEDS ORDERED: 0.9% NACL 250ML 250 ML ONE (16:04)
[2020-11-09] MEDS: VANCOMYCIN 1G/250ML KIT 250 ML IV SCH (16:06)
[2020-11-10] VITALS (26 sets, daily range): BP systolic 107–131; BP diastolic 58–96
[2020-11-10] MEDS: DEXTROSE 5%-WATER 1,000 ML IV SCH ×4 (00:25→17:13)
[2020-11-10] MEDS ORDERED: ZOSYN 3.375GM+NS 50ML 50 ML IV ONE ×2 (03:06→15:42)
[2020-11-10] MEDS: PIP/TAZ ZOSYN 3.375G 3.375 GM VIAL IVPB SCH ×2 (03:17→15:46)
[2020-11-10 04:45] LABS: HEMATOCRIT 24.4 % (36-48); MEAN CORPUSCULAR HEMOGLOBIN 28.2 pg (27.0-33.0); MEAN CORPUSCULAR HGB CONC 29.9 g/dL (32.0-36.0); MEAN CORPUSCULAR VOLUME 94.2 fL (79-99); RED BLOOD CELL COUNT(AUTO) 2.59 MIL/uL (4.00-5.50); RED CELL DISTRIBUTION WIDTH 19.4 % (11.0-15.5); WHITE BLOOD COUNT (AUTO) 10.2 K/uL (4.8-10.8)
[2020-11-10 04:50] LABS: CREATININE 2.4 mg/dL (0.5-1.5); POTASSIUM 4.2 mmol/L (3.5-5.1)
[2020-11-10] MEDS: INSULIN HUMULIN R 100 UNIT/ML 3ML SQ SCH ×4 (05:28→17:32)
[2020-11-10] MEDS: IPRATROPIUM/ALBUTEROL SULFATE 3 ML SOLUTION IH SCH ×4 (06:08→22:21)
[2020-11-10] MEDS: ACETYLCYSTEINE 20% 200MG/ML 4ML VIAL IH SCH ×5 (06:08→22:21)
[2020-11-10] MEDS: FUROSEMIDE 40MG VIAL IV SCH (07:08)
[2020-11-10] MEDS: PANTOPRAZOLE 40 MG/VIAL IVP SCH (07:53)
[2020-11-10] MEDS ORDERED: IPRATROPIUM/ALBUTEROL SULFATE 3 ML SOLUTION IH SCH (11:00)
[2020-11-10] MEDS: 0.9%NACL 1000ML 1,000 ML IV SCH (11:33)
[2020-11-11] VITALS (24 sets, daily range): BP systolic 94–136; BP diastolic 37–84
[2020-11-11] MEDS: IPRATROPIUM/ALBUTEROL SULFATE 3 ML SOLUTION IH SCH ×6 (02:16→23:24)
[2020-11-11] MEDS: ACETYLCYSTEINE 20% 200MG/ML 4ML VIAL IH SCH ×6 (02:16→23:24)
[2020-11-11] MEDS: PIP/TAZ ZOSYN 3.375G 3.375 GM VIAL IVPB SCH (04:00)
[2020-11-11] MEDS: INSULIN HUMULIN R 100 UNIT/ML 3ML SQ SCH ×4 (05:38→18:00)
[2020-11-11 05:41] LABS: HEMATOCRIT 29.2 % (36-48); MEAN CORPUSCULAR HEMOGLOBIN 27.9 pg (27.0-33.0); MEAN CORPUSCULAR HGB CONC 29.8 g/dL (32.0-36.0); MEAN CORPUSCULAR VOLUME 93.6 fL (79-99); RED BLOOD CELL COUNT(AUTO) 3.12 MIL/uL (4.00-5.50); RED CELL DISTRIBUTION WIDTH 18.9 % (11.0-15.5)
[2020-11-11 05:59] LABS: CREATININE 2.4 mg/dL (0.5-1.5); MAGNESIUM 2.6 mg/dL (1.80-2.40); POTASSIUM 4.2 mmol/L (3.5-5.1)
[2020-11-11] MEDS: ZOSYN 3.375GM+NS 50ML 50 ML IV SCH ×2 (08:04→20:47)
[2020-11-11 10:07] LABS: ABG BASE EXCESS -2.9 mmol/L (-2.0-3.0); ABG HCO3 21.6 mmol/L (21.0-28.0); ABG OXYGEN SATURATION 90.5 % (95.0-99.0); ABG PCO2 37 mmHg (32-45)
[2020-11-11] MEDS: PANTOPRAZOLE 40 MG/VIAL IVP SCH (10:30)
[2020-11-11] MEDS ORDERED: 0.9% NACL 250ML 250 ML ONE (12:23)
[2020-11-11] MEDS: VANCOMYCIN 1G/250ML KIT 250 ML IV SCH (12:24)
[2020-11-11 13:13] LABS: ABG BASE EXCESS -1.8 mmol/L (-2.0-3.0); ABG HCO3 24.5 mmol/L (21.0-28.0); ABG OXYGEN SATURATION 98.7 % (95.0-99.0); ABG PCO2 47 mmHg (32-45)
[2020-11-11] MEDS: FUROSEMIDE 40MG VIAL IV SCH (16:27)
[2020-11-11] MEDS: DEXTROSE 5%-WATER 1,000 ML IV SCH (18:04)
[2020-11-12] VITALS (23 sets, daily range): BP systolic 100–134; BP diastolic 51–80
[2020-11-12] MEDS: ACETYLCYSTEINE 20% 200MG/ML 4ML VIAL IH SCH ×6 (02:25→23:34)
[2020-11-12] MEDS: IPRATROPIUM/ALBUTEROL SULFATE 3 ML SOLUTION IH SCH ×4 (02:25→14:03)
[2020-11-12 03:35] LABS: HEMATOCRIT 24.9 % (36-48); MEAN CORPUSCULAR HEMOGLOBIN 27.4 pg (27.0-33.0); MEAN CORPUSCULAR HGB CONC 30.1 g/dL (32.0-36.0); MEAN CORPUSCULAR VOLUME 90.9 fL (79-99); RED BLOOD CELL COUNT(AUTO) 2.74 MIL/uL (4.00-5.50); RED CELL DISTRIBUTION WIDTH 18.6 % (11.0-15.5); WHITE BLOOD COUNT (AUTO) 11.2 K/uL (4.8-10.8)
[2020-11-12 03:46] LABS: CREATININE 2.4 mg/dL (0.5-1.5); MAGNESIUM 2.5 mg/dL (1.80-2.40); PHOSPHORUS 4.5 mg/dL (2.5-4.9); POTASSIUM 3.7 mmol/L (3.5-5.1)
[2020-11-12 04:56] LABS: ABG BASE EXCESS -0.1 mmol/L (-2.0-3.0); ABG HCO3 25.6 mmol/L (21.0-28.0); ABG OXYGEN SATURATION 97.6 % (95.0-99.0); ABG PCO2 47 mmHg (32-45)
[2020-11-12] MEDS: INSULIN HUMULIN R 100 UNIT/ML 3ML SQ SCH ×5 (06:00→22:06)
[2020-11-12] MEDS: ZOSYN 3.375GM+NS 50ML 50 ML IV SCH ×2 (08:23→21:09)
[2020-11-12] MEDS: PANTOPRAZOLE 40 MG/VIAL IVP SCH (08:23)
[2020-11-12] MEDS: FUROSEMIDE 40MG VIAL IV SCH (15:00)
[2020-11-12] MEDS ORDERED: IPRATROPIUM 0.5 MG/2.5 ML INH IH SCH (16:45)
[2020-11-12] MEDS: FUROSEMIDE 20 MG TABLET PO SCH (16:49)
[2020-11-12] MEDS: IPRATROPIUM 0.5 MG/2.5 ML INH IH SCH (23:04)
[2020-11-13] VITALS (24 sets, daily range): BP systolic 94–132; BP diastolic 36–86
[2020-11-13] MEDS: INSULIN HUMULIN R 100 UNIT/ML 3ML SQ SCH ×4 (06:00→23:59)
[2020-11-13 06:22] LABS: HEMATOCRIT 24.5 % (36-48); MEAN CORPUSCULAR HEMOGLOBIN 28.3 pg (27.0-33.0); MEAN CORPUSCULAR VOLUME 91.1 fL (79-99); NUCLEATED RED BLOOD CELLS 0.2 % (0.0-0.19); PLATELET COUNT (AUTO) 164 K/uL (130-400); RED BLOOD CELL COUNT(AUTO) 2.69 MIL/uL (4.00-5.50); RED CELL DISTRIBUTION WIDTH 18.2 % (11.0-15.5); WHITE BLOOD COUNT (AUTO) 10.7 K/uL (4.8-10.8)
[2020-11-13] MEDS: ACETYLCYSTEINE 20% 200MG/ML 4ML VIAL IH SCH ×4 (06:30→19:03)
[2020-11-13] MEDS: IPRATROPIUM 0.5 MG/2.5 ML INH IH SCH ×3 (06:30→19:02)
[2020-11-13 06:31] LABS: CREATININE 2.3 mg/dL (0.5-1.5); POTASSIUM 3.3 mmol/L (3.5-5.1)
[2020-11-13] MEDS: ZOSYN 3.375GM+NS 50ML 50 ML IV SCH ×2 (07:39→20:28)
[2020-11-13] MEDS: PANTOPRAZOLE 40 MG/VIAL IVP SCH (08:56)
[2020-11-13] MEDS: FUROSEMIDE 20 MG TABLET PO SCH ×2 (09:00→17:59)
[2020-11-13] MEDS: POTASSIUM CHLORIDE 20MEQ/100ML 100 ML IV PRN ×2 (09:01→11:43)
[2020-11-13] MEDS ORDERED: 0.9% NACL 250ML 250 ML ONE (11:31)
[2020-11-13] MEDS: VANCOMYCIN 1G/250ML KIT 250 ML IV SCH (11:44)
[2020-11-13] MEDS: TRAMADOL HCL 50 MG TABLET PO PRN (18:00)
[2020-11-14] VITALS (17 sets, daily range): BP systolic 98–142; BP diastolic 45–95
[2020-11-14] MEDS: IPRATROPIUM 0.5 MG/2.5 ML INH IH SCH ×4 (00:18→19:05)
[2020-11-14] MEDS: ACETYLCYSTEINE 20% 200MG/ML 4ML VIAL IH SCH ×5 (00:18→19:05)
[2020-11-14] MEDS: TRAMADOL HCL 50 MG TABLET PO PRN (02:56)
[2020-11-14 05:07] LABS: BASOPHILS % (AUTO) 0.4 % (0.0-5.0); EOSINOPHILS % (AUTO) 4.5 % (0.0-8.0); HEMATOCRIT 24.8 % (36-48); LYMPHOCYTES % (AUTO) 14.1 % (21.0-51.0); MEAN CORPUSCULAR HEMOGLOBIN 27.7 pg (27.0-33.0); MEAN CORPUSCULAR VOLUME 89.2 fL (79-99); MONOCYTES % (AUTO) 4.8 % (3.0-13.0); NEUTROPHILS % (AUTO) 70.3 % (40.0-77.0); NUCLEATED RED BLOOD CELLS 0.2 % (0.0-0.19); PLATELET COUNT (AUTO) 171 K/uL (130-400); RED BLOOD CELL COUNT(AUTO) 2.78 MIL/uL (4.00-5.50); RED CELL DISTRIBUTION WIDTH 17.8 % (11.0-15.5); WHITE BLOOD COUNT (AUTO) 9.1 K/uL (4.8-10.8)
[2020-11-14 05:18] LABS: CREATININE 2.4 mg/dL (0.5-1.5); POTASSIUM 3.2 mmol/L (3.5-5.1)
[2020-11-14] MEDS: INSULIN HUMULIN R 100 UNIT/ML 3ML SQ SCH ×3 (05:27→18:00)
[2020-11-14] MEDS: POTASSIUM CHLORIDE 20MEQ/100ML 100 ML IV PRN (05:44)
[2020-11-14] MEDS: PANTOPRAZOLE 40 MG/VIAL IVP SCH (08:13)
[2020-11-14] MEDS: FUROSEMIDE 20 MG TABLET PO SCH ×2 (08:13→16:37)
[2020-11-14] MEDS: ZOSYN 3.375GM+NS 50ML 50 ML IV SCH ×2 (08:13→20:43)
[2020-11-15] MEDS: IPRATROPIUM 0.5 MG/2.5 ML INH IH SCH ×5 (01:18→23:05)
[2020-11-15] MEDS: ACETYLCYSTEINE 20% 200MG/ML 4ML VIAL IH SCH ×4 (01:20→11:23)
[2020-11-15 03:52] VITALS: BP 124/60
[2020-11-15 05:13] LABS: BASOPHILS % (AUTO) 0.4 % (0.0-5.0); EOSINOPHILS % (AUTO) 4.3 % (0.0-8.0); HEMATOCRIT 26.4 % (36-48); LYMPHOCYTES % (AUTO) 16.6 % (21.0-51.0); MEAN CORPUSCULAR HEMOGLOBIN 27.9 pg (27.0-33.0); MEAN CORPUSCULAR HGB CONC 31.1 g/dL (32.0-36.0); MEAN CORPUSCULAR VOLUME 89.8 fL (79-99); NEUTROPHILS % (AUTO) 68.4 % (40.0-77.0); PLATELET COUNT (AUTO) 168 K/uL (130-400); RED BLOOD CELL COUNT(AUTO) 2.94 MIL/uL (4.00-5.50); RED CELL DISTRIBUTION WIDTH 17.7 % (11.0-15.5); WHITE BLOOD COUNT (AUTO) 7.4 K/uL (4.8-10.8)
[2020-11-15 05:44] LABS: CREATININE 2.2 mg/dL (0.5-1.5); POTASSIUM 3.3 mmol/L (3.5-5.1)
[2020-11-15] MEDS: INSULIN HUMULIN R 100 UNIT/ML 3ML SQ SCH ×5 (06:00→21:52)
[2020-11-15] MEDS: POTASSIUM CHLORIDE 10% ELIXIR 20 MEQ/15 ML UDCUP PO PRN ×2 (06:49→09:37)
[2020-11-15 07:30] VITALS: BP 140/69
[2020-11-15] MEDS: FUROSEMIDE 20 MG TABLET PO SCH (09:31)
[2020-11-15] MEDS: ZOSYN 3.375GM+NS 50ML 50 ML IV SCH ×2 (09:31→21:26)
[2020-11-15] MEDS: PANTOPRAZOLE 40 MG/VIAL IVP SCH (09:31)
[2020-11-15 11:00] VITALS: BP 144/66
[2020-11-15] MEDS: VANCOMYCIN 1G/250ML KIT 250 ML IV SCH (14:54)
[2020-11-15 16:00] VITALS: BP 96/69
[2020-11-15 20:25] VITALS: BP 130/69
[2020-11-15 23:30] VITALS: BP 131/66
[2020-11-16 03:51] VITALS: BP 133/69
[2020-11-16] MEDS: INSULIN HUMULIN R 100 UNIT/ML 3ML SQ SCH ×3 (05:50→18:00)
[2020-11-16 06:01] LABS: HEMATOCRIT 26.7 % (36-48); MEAN CORPUSCULAR HEMOGLOBIN 27.5 pg (27.0-33.0); MEAN CORPUSCULAR HGB CONC 30.7 g/dL (32.0-36.0); MEAN CORPUSCULAR VOLUME 89.6 fL (79-99); RED BLOOD CELL COUNT(AUTO) 2.98 MIL/uL (4.00-5.50); RED CELL DISTRIBUTION WIDTH 17.7 % (11.0-15.5); WHITE BLOOD COUNT (AUTO) 7.7 K/uL (4.8-10.8)
[2020-11-16 06:19] LABS: CREATININE 2.2 mg/dL (0.5-1.5); MAGNESIUM 1.7 mg/dL (1.80-2.40); POTASSIUM 3.6 mmol/L (3.5-5.1)
[2020-11-16] MEDS: IPRATROPIUM 0.5 MG/2.5 ML INH IH SCH ×3 (06:52→18:21)
[2020-11-16 08:49] VITALS: BP 141/70
[2020-11-16] MEDS ORDERED: FUROSEMIDE 20 MG TABLET PO SCH (09:00)
[2020-11-16] MEDS ORDERED: ALLOPURINOL 100 MG TABLET PO SCH (09:00)
[2020-11-16] MEDS ORDERED: LISINOPRIL 20 MG TABLET PO SCH (09:00)
[2020-11-16] MEDS: ZOSYN 3.375GM+NS 50ML 50 ML IV SCH (09:22)
[2020-11-16] MEDS: PANTOPRAZOLE 40 MG/VIAL IVP SCH (09:22)
[2020-11-16 12:00] VITALS: BP 134/76
[2020-11-16] MEDS ORDERED: FERROUS SULFATE 325 MG TABLET.DR PO SCH (12:00)
[2020-11-16] MEDS ORDERED: TORSEMIDE 20 MG TAB PO SCH (12:00)
[2020-11-16] MEDS ORDERED: ATORVASTATIN 10 MG TABLET PO SCH (12:00)
[2020-11-16] MEDS: POTASSIUM CHLORIDE 10% ELIXIR 20 MEQ/15 ML UDCUP PO PRN ×2 (13:08→17:11)
[2020-11-16 18:48] VITALS: BP 122/63
[2020-11-17] MEDS ORDERED: LEVOTHYROXINE 150 MCG TABLET PO SCH (06:30)
== END 2020-11-16 21:49 | DRG 329 ==
LOC: INTOOBSV 11-06 09:16 → DAHIP 11-06 09:16 → OBSVTOIN 11-06 09:16 → EDSTATUS 11-06 15:00 → 2CH 11-06 16:45 → 3CH 11-14 14:42
PROVIDERS: ADMIT Internal Medicine Critical Care Medicine; ATTEND Internal Medicine Critical Care Medicine
PROC: 5A1945Z Respiratory Ventilation, 24-96 Consecutive Hours (ICD-10-PCS; 2020-11-06)
PROC: 30233N1 Transfusion of Nonautologous Red Blood Cells into Peripheral Vein, Percutaneous Approach (ICD-10-PCS; 2020-11-06)
PROC: 5A09357 Assistance with Respiratory Ventilation, Less than 24 Consecutive Hours, Continuous Positive Airway Pressure (ICD-10-PCS; 2020-11-06)
PROC: 0BH17EZ Insertion of Endotracheal Airway into Trachea, Via Natural or Artificial Opening (ICD-10-PCS; 2020-11-06)
PROC: 0DTF0ZZ Resection of Right Large Intestine, Open Approach (ICD-10-PCS; principal; 2020-11-06 11:00)
PROC: 0BCF8ZZ Extirpation of Matter from Right Lower Lung Lobe, Via Natural or Artificial Opening Endoscopic (ICD-10-PCS; 2020-11-07)
PROC: 0BCC8ZZ Extirpation of Matter from Right Upper Lung Lobe, Via Natural or Artificial Opening Endoscopic (ICD-10-PCS; 2020-11-07)
PROC: 0B9F8ZZ Drainage of Right Lower Lung Lobe, Via Natural or Artificial Opening Endoscopic (ICD-10-PCS; 2020-11-07)
PROC: 0B9C8ZZ Drainage of Right Upper Lung Lobe, Via Natural or Artificial Opening Endoscopic (ICD-10-PCS; 2020-11-07)
PROC: 5A09357 Assistance with Respiratory Ventilation, Less than 24 Consecutive Hours, Continuous Positive Airway Pressure (ICD-10-PCS; 2020-11-09)
PROC: 5A09357 Assistance with Respiratory Ventilation, Less than 24 Consecutive Hours, Continuous Positive Airway Pressure (ICD-10-PCS; 2020-11-11)
PROC: 5A09357 Assistance with Respiratory Ventilation, Less than 24 Consecutive Hours, Continuous Positive Airway Pressure (ICD-10-PCS; 2020-11-11)
PROC: 5A09357 Assistance with Respiratory Ventilation, Less than 24 Consecutive Hours, Continuous Positive Airway Pressure (ICD-10-PCS; 2020-11-11)
PROC: 5A09357 Assistance with Respiratory Ventilation, Less than 24 Consecutive Hours, Continuous Positive Airway Pressure (ICD-10-PCS; 2020-11-11)
DX: C18.0 Malignant neoplasm of cecum (principal); J69.0 Pneumonitis due to inhalation of food and vomit; J15.9 Unspecified bacterial pneumonia; J95.821 Acute postprocedural respiratory failure; N17.9 Acute kidney failure, unspecified; E87.0 Hyperosmolality and hypernatremia; D50.9 Iron deficiency anemia, unspecified; N18.9 Chronic kidney disease, unspecified; E11.22 Type 2 diabetes mellitus with diabetic chronic kidney disease; I12.9 Hypertensive chronic kidney disease with stage 1 through stage 4 chronic kidney disease, or unspecified chronic kidney disease; H91.90 Unspecified hearing loss, unspecified ear; Z85.038 Personal history of other malignant neoplasm of large intestine; Z85.3 Personal history of malignant neoplasm of breast; Z90.11 Acquired absence of right breast and nipple; E78.5 Hyperlipidemia, unspecified; E03.9 Hypothyroidism, unspecified; M19.90 Unspecified osteoarthritis, unspecified site; G62.9 Polyneuropathy, unspecified; K57.90 Diverticulosis of intestine, part unspecified, without perforation or abscess without bleeding; E66.9 Obesity, unspecified; Z68.27 Body mass index [BMI] 27.0-27.9, adult; Z79.899 Other long term (current) drug therapy; Z88.8 Allergy status to other drugs, medicaments and biological substances; Z20.822 Contact with and (suspected) exposure to COVID-19; Z79.84 Long term (current) use of oral hypoglycemic drugs; Y95 Nosocomial condition; Y83.8 Other surgical procedures as the cause of abnormal reaction of the patient, or of later complication, without mention of misadventure at the time of the procedure; Y82.8 Other medical devices associated with adverse incidents; Y92.89 Other specified places as the place of occurrence of the external cause
CPT/HCPCS: 31500; 36415; 36600; 71045; 80048; 80053; 80202; 82435; 82803; 82947; 82948; 83605; 83735; 83880; 84100; 84132; 84295; 85018; 85025; 85027; 85610; 86850; 86900; 86901; 86923; 87071; 87116; 87205; 87206; 87635; 88309; 89051; 92526; 92610; 94002; 94003; 94640; 94660; 94664; 94667; 94668; 97039; A4344; C1751; C9113; G0378; J0295; J0694; J1100; J1815; J1940; J2001; J2250; J2370; J2405; J2543; J2704; J2710; J3010; J3370; J3480; J3490; J7030; J7050; J7070; J7120; J7608; P9016; P9047

== ENCOUNTER 2021-04-10 19:37 | Inpatient (IN) | payer OTHER, MEDICARE ==
[~2021-04-10] VITALS: Ht 157.5 cm; Wt 61.2 kg
[~2021-04-10 19:37] MED LIST changes: +ATOR10TA69 PO; +FERR-82 PO; +TORS10TA18 PO
[2021-04-10] MEDS ORDERED: FAMOTIDINE 20MG VIAL IV ONE ×2 (20:00→21:06)
[2021-04-10] MEDS ORDERED: ONDANSETRON 4MG INJ IVP ONE (20:00)
[2021-04-10] MEDS ORDERED: LACTATED RINGERS 1000ML 1,000 ML IV ONE (20:00)
[2021-04-10] MEDS ORDERED: IPRATROPIUM/ALBUTEROL SULFATE 3 ML SOLUTION IH ONE (20:00)
[2021-04-10 20:38] LABS: BASOPHILS % (AUTO) 0.3 % (0.0-5.0); EOSINOPHILS % (AUTO) 0.2 % (0.0-8.0); HEMATOCRIT 35.4 % (36-48); LYMPHOCYTES % (AUTO) 9.4 % (21.0-51.0); MEAN CORPUSCULAR HEMOGLOBIN 32.4 pg (27.0-33.0); MEAN CORPUSCULAR HGB CONC 31.4 g/dL (32.0-36.0); MEAN CORPUSCULAR VOLUME 103.2 fL (79-99); MONOCYTES % (AUTO) 3.3 % (3.0-13.0); NEUTROPHILS % (AUTO) 85.5 % (40.0-77.0); PLATELET COUNT (AUTO) 206 K/uL (130-400); RED BLOOD CELL COUNT(AUTO) 3.43 MIL/uL (4.00-5.50); RED CELL DISTRIBUTION WIDTH 19.2 % (11.0-15.5); WHITE BLOOD COUNT (AUTO) 18.6 K/uL (4.8-10.8)
[2021-04-10 20:57] LABS: B-TYPE NATRIURETIC PEPTIDE 89 pg/mL (0-100)
[2021-04-10 21:00] LABS: CREATININE 2.5 mg/dL (0.5-1.5); POTASSIUM 4.9 mmol/L (3.5-5.1)
[2021-04-10 21:05] LABS: ALBUMIN 3.8 g/dL (3.5-5.0); BILIRUBIN,TOTAL 0.5 mg/dL (0.2-1.0); TOTAL PROTEIN, SERUM 7.7 g/dL (6.0-8.3)
[2021-04-10] MEDS ORDERED: ONDANSETRON 4MG INJ ONE (21:05)
[2021-04-10 21:28] LABS: APPEARANCE,URINE Turbid (CLEAR); BILIRUBIN,URINE Negative (NEGATIVE); COLOR,URINE Yellow (YELLOW); GLUCOSE, URINE (UA) TRACE mg/dL (NEGATIVE); KETONES,URINE Trace mg/dL (NEGATIVE); LEUKOCYTE ESTERASE ,URINE Moderate (NEGATIVE); NITRATE,URINE Negative (NEGATIVE); OCCULT BLOOD,URINE Small (NEGATIVE); PROTEIN,URINE 300 mg/dL (NEGATIVE)
[2021-04-10 21:49] LABS: BACTERIA,URINE Few /HPF (None Seen); SQUAMOUS EPITHELIAL CELL,UR Few /HPF (0-2); WBC,URINE 26-50 /HPF (0-1)
[2021-04-10] MEDS ORDERED: NITROGLYCERIN 0.4 MG SL TAB SL PRN (22:00)
[2021-04-10] MEDS ORDERED: MORPHINE 2 MG SYG IV PRN (22:00)
[2021-04-10] MEDS ORDERED: ONDANSETRON 4MG INJ IV PRN (22:00)
[2021-04-10] MEDS ORDERED: CEFTRIAXONE 1G VIAL IVP ONE (22:00)
[2021-04-10] MEDS ORDERED: HYDROMORPHONE 0.5 MG SYG (0.5MG/0.5ML) IV PRN (22:00)
[2021-04-10] MEDS ORDERED: PROMETHAZINE HCL 25 MG/ML 1ML AMPULE IM PRN (22:00)
[2021-04-11] VITALS (7 sets, daily range): BP systolic 104–138; BP diastolic 49–84
[2021-04-11] MEDS ORDERED: CEFTRIAXONE 1G VIAL ONE (00:09)
[2021-04-11] MEDS ORDERED: 0.9%NACL 100ML 100 ML ONE (00:10)
[2021-04-11 02:57] LABS: BASOPHILS % (AUTO) 0.1 % (0.0-5.0); HEMATOCRIT 26.2 % (36-48); LYMPHOCYTES % (AUTO) 6.7 % (21.0-51.0); MEAN CORPUSCULAR HGB CONC 31.3 g/dL (32.0-36.0); MEAN CORPUSCULAR VOLUME 102.3 fL (79-99); MONOCYTES % (AUTO) 4.5 % (3.0-13.0); NEUTROPHILS % (AUTO) 87.7 % (40.0-77.0); PLATELET COUNT (AUTO) 136 K/uL (130-400); RED BLOOD CELL COUNT(AUTO) 2.56 MIL/uL (4.00-5.50)
[2021-04-11 03:07] LABS: HEMOGLOBIN A1C 5.3 % (4.0-6.0)
[2021-04-11 03:27] LABS: ALBUMIN 2.7 g/dL (3.5-5.0); BILIRUBIN,TOTAL 0.2 mg/dL (0.2-1.0); CREATININE 2.1 mg/dL (0.5-1.5); POTASSIUM 5.1 mmol/L (3.5-5.1); THYROID STIMULATING HORMONE 0.68 uIU/mL (0.36-3.74); TOTAL PROTEIN, SERUM 5.7 g/dL (6.0-8.3)
[2021-04-11] MEDS: DOXYCYCLINE 100MG+NS 250ML IV SCH ×2 (03:29→14:57)
[2021-04-11] MEDS: 0.9% NACL 250ML IVPB SCH ×2 (03:29→14:57)
[2021-04-11] MEDS ORDERED: CAPE500 PO (05:53)
[2021-04-11] MEDS ORDERED: ASPI-1197 PO (05:53)
[2021-04-11] MEDS ORDERED: LEVOTHYROXINE 100MCG VIAL IV SCH (06:30)
[2021-04-11] MEDS: 0.9%NACL 1000ML 1,000 ML IV SCH ×2 (12:36)
[2021-04-11] MEDS: CEFTRIAXONE 1G VIAL IVP SCH (12:36)
[2021-04-11] MEDS: NYSTATIN 15 GM POWDER TP SCH (22:04)
[2021-04-12] MEDS: 0.9% NACL 250ML IVPB SCH ×2 (02:30→14:30)
[2021-04-12] MEDS: 0.9%NACL 1000ML 1,000 ML IV SCH ×2 (03:16→14:40)
[2021-04-12 03:39] VITALS: BP 118/53
[2021-04-12 04:19] LABS: HEMATOCRIT 26.4 % (36-48); MEAN CORPUSCULAR HEMOGLOBIN 32.1 pg (27.0-33.0); MEAN CORPUSCULAR HGB CONC 30.7 g/dL (32.0-36.0); MEAN CORPUSCULAR VOLUME 104.8 fL (79-99); RED BLOOD CELL COUNT(AUTO) 2.52 MIL/uL (4.00-5.50); RED CELL DISTRIBUTION WIDTH 19.2 % (11.0-15.5); WHITE BLOOD COUNT (AUTO) 6.9 K/uL (4.8-10.8)
[2021-04-12 04:43] LABS: CREATININE 2.2 mg/dL (0.5-1.5); PHOSPHORUS 4.3 mg/dL (2.5-4.9); POTASSIUM 4.3 mmol/L (3.5-5.1)
[2021-04-12] MEDS: ALLOPURINOL 100 MG TABLET PO SCH (08:14)
[2021-04-12] MEDS: ASPIRIN 81MG CHEW TAB PO SCH (08:14)
[2021-04-12] MEDS: HYDROCHLOROTHIAZIDE 25 MG TABLET PO SCH (08:14)
[2021-04-12] MEDS: NYSTATIN 15 GM POWDER TP SCH ×2 (08:15→20:43)
[2021-04-12] MEDS: LISINOPRIL 20 MG TABLET PO SCH (08:17)
[2021-04-12] MEDS: XELODA 500 MG PO SCH ×2 (08:18→20:49)
[2021-04-12 08:26] VITALS: BP 117/67
[2021-04-12 11:54] VITALS: BP 102/51
[2021-04-12] MEDS: CEFTRIAXONE 1G VIAL IVP SCH (11:55)
[2021-04-12] MEDS: ATORVASTATIN 10 MG TABLET PO SCH (11:55)
[2021-04-12] MEDS: FERROUS SULFATE 325 MG TABLET.DR PO SCH (11:55)
[2021-04-12 16:25] VITALS: BP 121/58
[2021-04-12 20:08] VITALS: BP 112/54
[2021-04-12 23:31] VITALS: BP 131/57
[2021-04-13] MEDS: 0.9% NACL 250ML IVPB SCH ×2 (02:30→14:30)
[2021-04-13 03:24] VITALS: BP 133/68
[2021-04-13 04:17] LABS: HEMATOCRIT 28.5 % (36-48); MEAN CORPUSCULAR HEMOGLOBIN 32.5 pg (27.0-33.0); MEAN CORPUSCULAR HGB CONC 30.5 g/dL (32.0-36.0); MEAN CORPUSCULAR VOLUME 106.3 fL (79-99); RED BLOOD CELL COUNT(AUTO) 2.68 MIL/uL (4.00-5.50); RED CELL DISTRIBUTION WIDTH 19.2 % (11.0-15.5); WHITE BLOOD COUNT (AUTO) 8.8 K/uL (4.8-10.8)
[2021-04-13 04:26] LABS: MAGNESIUM 1.9 mg/dL (1.80-2.40); PHOSPHORUS 3.9 mg/dL (2.5-4.9); POTASSIUM 4.1 mmol/L (3.5-5.1)
[2021-04-13] MEDS: 0.9%NACL 1000ML 1,000 ML IV SCH (05:36)
[2021-04-13 08:15] VITALS: BP 124/78
[2021-04-13] MEDS: ASPIRIN 81MG CHEW TAB PO SCH (08:28)
[2021-04-13] MEDS: HYDROCHLOROTHIAZIDE 25 MG TABLET PO SCH (08:29)
[2021-04-13] MEDS: ALLOPURINOL 100 MG TABLET PO SCH (08:29)
[2021-04-13] MEDS: LISINOPRIL 20 MG TABLET PO SCH (08:29)
[2021-04-13] MEDS: NYSTATIN 15 GM POWDER TP SCH (08:30)
[2021-04-13] MEDS: XELODA 500 MG PO SCH (08:33)
[2021-04-13] MEDS ORDERED: ENOXAPARIN SODIUM 40 MG/0.4 ML SYRINGE SQ SCH (09:00)
[2021-04-13] MEDS ORDERED: LEVOTHYROXINE 150 MCG TABLET PO SCH (09:00)
[2021-04-13] MEDS: FERROUS SULFATE 325 MG TABLET.DR PO SCH (11:53)
[2021-04-13] MEDS: ATORVASTATIN 10 MG TABLET PO SCH (11:53)
[2021-04-13] MEDS: CEFTRIAXONE 1G VIAL IVP SCH (11:53)
[2021-04-13 12:04] VITALS: BP 112/56
[2021-04-13] MEDS ORDERED: CEPH500B PO (16:09)
== END 2021-04-13 17:10 | disposition home or self-care (01) | DRG 389 ==
LOC: EDH 19:37 → OBSVTOIN 21:38 → EDHIP 21:38 → 3AH 04-11 00:23
PROVIDERS: ADMIT Internal Medicine Critical Care Medicine; ATTEND Internal Medicine Critical Care Medicine
DX: K56.609 Unspecified intestinal obstruction, unspecified as to partial versus complete obstruction (principal); N17.9 Acute kidney failure, unspecified; E87.0 Hyperosmolality and hypernatremia; N39.0 Urinary tract infection, site not specified; K52.9 Noninfective gastroenteritis and colitis, unspecified; Z20.822 Contact with and (suspected) exposure to COVID-19; M10.9 Gout, unspecified; D50.9 Iron deficiency anemia, unspecified; M19.90 Unspecified osteoarthritis, unspecified site; K57.90 Diverticulosis of intestine, part unspecified, without perforation or abscess without bleeding; E03.9 Hypothyroidism, unspecified; E78.5 Hyperlipidemia, unspecified; N18.30 Chronic kidney disease, stage 3 unspecified; I12.9 Hypertensive chronic kidney disease with stage 1 through stage 4 chronic kidney disease, or unspecified chronic kidney disease; E11.40 Type 2 diabetes mellitus with diabetic neuropathy, unspecified; E11.22 Type 2 diabetes mellitus with diabetic chronic kidney disease; E78.00 Pure hypercholesterolemia, unspecified; J98.4 Other disorders of lung; Z85.3 Personal history of malignant neoplasm of breast; Z85.038 Personal history of other malignant neoplasm of large intestine; Z90.49 Acquired absence of other specified parts of digestive tract; Z90.11 Acquired absence of right breast and nipple; Z88.8 Allergy status to other drugs, medicaments and biological substances
CPT/HCPCS: 36415; 71045; 74018; 74176; 80048; 80053; 81001; 83036; 83690; 83735; 83880; 84100; 84443; 84484; 85025; 85027; 86140; 87088; 87635; 87804; 93005; 94640; C9803; G0378; J0696; J1650; J2405; J3490; J7030; J7050; J7120

== ENCOUNTER 2021-12-05 09:34 | Emergency (ER) | payer OTHER, MEDICARE ==
[~2021-12-05] VITALS: Ht 157.5 cm; Wt 77.1 kg
[~2021-12-05 09:34] MED LIST changes: +ASPI-1197 PO; +CAPE500 PO; +CEPH500B PO
[2021-12-05 09:55] VITALS: BP 127/71
[2021-12-05 09:56] LABS: BASOPHILS % (AUTO) 0.5 % (0.0-5.0); EOSINOPHILS % (AUTO) 0.2 % (0.0-8.0); HEMATOCRIT 33.6 % (36-48); LYMPHOCYTES % (AUTO) 8.9 % (21.0-51.0); MEAN CORPUSCULAR HEMOGLOBIN 30.2 pg (27.0-33.0); MEAN CORPUSCULAR HGB CONC 33.3 g/dL (32.0-36.0); MEAN CORPUSCULAR VOLUME 90.6 fL (79-99); MONOCYTES % (AUTO) 8.1 % (3.0-13.0); NEUTROPHILS % (AUTO) 75.8 % (40.0-77.0); PLATELET COUNT (AUTO) 99 K/uL (130-400); RED BLOOD CELL COUNT(AUTO) 3.71 MIL/uL (4.00-5.50); RED CELL DISTRIBUTION WIDTH 16.7 % (11.0-15.5); WHITE BLOOD COUNT (AUTO) 11.1 K/uL (4.8-10.8)
[2021-12-05 10:04] LABS: CREATININE 2.1 mg/dL (0.5-1.5); POTASSIUM 4.3 mmol/L (3.5-5.1)
[2021-12-05 10:08] LABS: ALBUMIN 3.4 g/dL (3.5-5.0); BILIRUBIN,TOTAL 1.5 mg/dL (0.2-1.0); INR 0.95 (0.85-1.15); PROTHROMBIN TIME 10.4 SEC (9.6-11.6); TOTAL PROTEIN, SERUM 7.8 g/dL (6.0-8.3); URIC ACID 8.2 mg/dL (2.6-7.2)
[2021-12-05 10:09] LABS: PARTIAL THROMBOPLASTIN TIME 21.1 SEC (26.3-35.5)
[2021-12-05] MEDS ORDERED: LIDOCAINE HCL-MPF 1% 2ML VIAL IV SCH (10:30)
[2021-12-05] MEDS ORDERED: PRED20TA3 PO (11:28)
[2021-12-05] MEDS ORDERED: IBUP-1493 PO (11:28)
[2021-12-05] MEDS ORDERED: MORPHINE 4 MG SYG IM ONE (12:00)
== END 2021-12-05 12:02 | disposition home or self-care (01) ==
LOC: EDH 09:34
DX: M10.061 Idiopathic gout, right knee (principal); E11.9 Type 2 diabetes mellitus without complications; E03.9 Hypothyroidism, unspecified; E78.00 Pure hypercholesterolemia, unspecified; I10 Essential (primary) hypertension; Z79.1 Long term (current) use of non-steroidal anti-inflammatories (NSAID); Z79.52 Long term (current) use of systemic steroids; Z79.82 Long term (current) use of aspirin; Z79.84 Long term (current) use of oral hypoglycemic drugs
CPT/HCPCS: 36415; 73562; 80053; 84550; 85025; 85610; 85730; 93005; 96372; 96374; 99285; J1030; J2270

== ENCOUNTER 2022-08-02 18:43 | Emergency (ER) | payer OTHER, MEDICARE ==
[~2022-08-02] VITALS: Ht 157.5 cm; Wt 60.3 kg
[~2022-08-02 18:43] MED LIST changes: +IBUP-1493 PO; +PRED20TA3 PO
[2022-08-02] MEDS ORDERED: 0.9%NACL 1000ML 1,000 ML IV SCH (19:30)
[2022-08-02 19:52] LABS: ALBUMIN 3.5 g/dL (3.5-5.0); MAGNESIUM 2.2 mg/dL (1.80-2.40); TOTAL PROTEIN, SERUM 7.4 g/dL (6.0-8.3)
[2022-08-02 19:57] LABS: BASOPHILS % (AUTO) 0.2 % (0.0-5.0); EOSINOPHILS % (AUTO) 3.1 % (0.0-8.0); LYMPHOCYTES % (AUTO) 19.6 % (21.0-51.0); MEAN CORPUSCULAR HEMOGLOBIN 29.8 pg (27.0-33.0); MEAN CORPUSCULAR HGB CONC 31.3 g/dL (32.0-36.0); MEAN CORPUSCULAR VOLUME 95.2 fL (79-99); MONOCYTES % (AUTO) 6.1 % (3.0-13.0); PLATELET COUNT (AUTO) 103 K/uL (130-400); RED BLOOD CELL COUNT(AUTO) 3.36 MIL/uL (4.00-5.50); RED CELL DISTRIBUTION WIDTH 19.3 % (11.0-15.5); WHITE BLOOD COUNT (AUTO) 8.1 K/uL (4.8-10.8)
[2022-08-02 20:33] LABS: APPEARANCE,URINE CLOUDY (CLEAR); BILIRUBIN,URINE NEGATIVE (NEGATIVE); GLUCOSE, URINE (UA) NEGATIVE (NEGATIVE); KETONES,URINE NEGATIVE (NEGATIVE); LEUKOCYTE ESTERASE ,URINE 500 Leu/uL (NEGATIVE); NITRATE,URINE NEGATIVE (NEGATIVE); OCCULT BLOOD,URINE NEGATIVE (NEGATIVE); PROTEIN,URINE NEGATIVE (NEGATIVE); UROBILINOGEN,URINE 0.2 mg/dL (0.2-1.0)
[2022-08-02 20:44] LABS: COLOR,URINE Light-Yellow (YELLOW); RBC,URINE Y /HPF (0-1)
[2022-08-02 20:49] LABS: BACTERIA,URINE RARE /HPF (None Seen); MUCUS,URINE RARE LPF (None Seen); SQUAMOUS EPITHELIAL CELL,UR RARE /HPF (0-2); WBC,URINE 51-100 /HPF (0-1)
[2022-08-02 21:02] VITALS: BP 143/78
[2022-08-02] MEDS ORDERED: AMOX-426 PO (21:19)
[2022-08-02] MEDS ORDERED: CEFTRIAXONE 1G VIAL IV ONE (21:30)
== END 2022-08-02 21:47 | disposition home or self-care (01) ==
LOC: EDH 18:43
DX: N39.0 Urinary tract infection, site not specified (principal); J18.9 Pneumonia, unspecified organism; I10 Essential (primary) hypertension; E78.00 Pure hypercholesterolemia, unspecified; E11.9 Type 2 diabetes mellitus without complications; Z20.822 Contact with and (suspected) exposure to COVID-19; Z85.038 Personal history of other malignant neoplasm of large intestine; Z88.8 Allergy status to other drugs, medicaments and biological substances; Z79.899 Other long term (current) drug therapy
CPT/HCPCS: 99285; 96374; 71045; 87635; 83735; 84484; 80053; 85025; 87088; 87804 ×2; 81001; 36415; 93005; C9803; J0696